=== PATIENT | male | born 1960 | race Caucasian/White ===

== ENCOUNTER 2022-01-14 07:35 | Day surgery (SDC) | payer OTHER ==
[2022-01-14] MEDS ORDERED: Propofol 200 MG/20 ML SDV IV ONE (07:36)
[2022-01-14] MEDS ORDERED: Lidocaine 1% PF 2 ML SDV INJECT ONE (07:36)
[2022-01-14] MEDS ORDERED: Sodium Chloride 0.9% 10 ML Syringe FLUSH PRN (07:45)
[2022-01-14] MEDS ORDERED: Lactated Ringers 1,000 ML IV SCH (07:45)
== END 2022-01-14 11:33 | disposition home or self-care (01) ==
LOC: FB.SDS 07:35
PROVIDERS: ATTEND Surgery
DX: Z12.11 Encounter for screening for malignant neoplasm of colon (principal); D12.6 Benign neoplasm of colon, unspecified; K57.30 Diverticulosis of large intestine without perforation or abscess without bleeding; F17.210 Nicotine dependence, cigarettes, uncomplicated; Z79.899 Other long term (current) drug therapy; Z98.890 Other specified postprocedural states
CPT/HCPCS: 00812-QZ; 88305; J2704; J7120